=== PATIENT | female | born 1975 | race Caucasian/White ===

== ENCOUNTER 2022-10-30 15:48 | Outpatient (CLI) | payer OTHER, SELFPAY ==
--- NOTE | 2022-10-30 15:40 | CRLHL7_ITS ---
For Patients: As a result of the Century Cures Act, medical imaging exams and procedure reports are released immediately into your electronic medical record. You may view this report before your referring provider. If you have questions, please contact your health care provider. BILATERAL SCREENING MAMMOGRAM WITH COMPUTER-AIDED DETECTION TECHNIQUE: CC and MLO views were obtained. These mammographic images have been obtained using full-field digital technique. These mammographic images were interpreted with the benefit of computer-aided detection. COMPARISON FILM: Baseline. FINDINGS: There are scattered areas of fibroglandular density IMPRESSION: There is no radiographic evidence for malignancy. ASSESSMENT: BI-RADS Category 1: Negative RECOMMENDATION: Routine screening mammogram in 1 year. A lay language report of this examination will be provided to the patient. Shawn Chaudhari M.D. Diagnostic Radiologist [employer] [email or web address] ABIMBOLA/Dictated by: Shawn Chaudhari MD @ 10/31/2022 8:40:00 AM (Electronically Signed)
== END 2022-10-30 15:49 | disposition home or self-care (01) ==
LOC: MAMMO 15:49
PROVIDERS: PCP Internal Medicine; Visit Provider Internal Medicine
DX: Z12.31 Encounter for screening mammogram for malignant neoplasm of breast (principal)
CPT/HCPCS: 77063; 77067

== ENCOUNTER 2023-12-15 09:37 | Outpatient (CLI) | payer OTHER, SELFPAY ==
--- OUTSIDE RECORDS SUMMARY | 2023-12-17 09:46 | XMS_ITS | Clinical Summary ---
Author Organization [employer] [facility] Address [place], [place] [address] Care Team Providers Care Photographic Supervisor Name Role Phone Cinthia Baez Primary Care Provider [phone] Allergies Active Allergy Reactions Criticality Noted Date Comments Adhesive Rash 09/26/2015 Medications Medication Sig Dispensed Refills Start Date End Date Status OMEPRAZOLE 20 MG CAP, DELAYED RELEASE take 1 capsule (20 mg) by oral route once daily before a meal 0 02/09/2008 Active amLODIPine (NORVASC) 5 mg tablet Take 5 mg by mouth once daily. Active HYDROcodone-acetam inophen (NORCO) 5-325 mg per tabletIndications: Pain, dental Take 1 Tablet by mouth every 4 hours if needed for Pain. Max acetaminophen dose: 4000 mg in 24 hrs. 10 Tablet 10/18/2021 Active Active Problems No known active problems Immunizations Name Administration Dates Next Due Hepatitis B (Adult) 05/06/2001,02/11/2001,2000 Hepatitis B, Unspecified 05/06/2001,02/11/2001,0 12/24/2000 Influenza, IIV3 (Age 6-35 mos) 01/20/2014,2012,03/01/2012,12/20/2010 Influenza, IIV4 03/20/2021, 9,01/25/2018,12/29/2016,1 Influenza, IIV4 (=>6mos) MDV 01/29/2016 Td (Age >=7 Years) 07/12/2003 Tdap 10/16/2015,12/04/2013 Social History Tobacco Use Types Packs/Day Years Used Date Smoking Tobacco: Never Smokeless Tobacco: Never Alcohol Use Standard Drinks/Week Comments Yes 0 (1 standard drink = 0.6 oz pur e alcohol) ocass. Sex and Gender Information Value Date Recorded Sex Assigned at Not on file Gender Identity Not on file Sexual Orientation Not on file Obstetrics History Para Term AB IAB SAB Ectopic Multiple Livin g Live Births 6 4 1 1 Date Outcome GA Total Labor Labor/2nd/3rd Weight Sex Type Anes PTL Raquel A1 A5 Name Clin Para Para Para Para SAB Last Filed Vital Signs Vital Sign Reading Time Taken Comments Blood Pressure 162/78 01/18/2022 12:00 PM CDT Pulse 108 01/18/2022 12:00 PM CDT Temperature 36.9 ??C (98.4 ??F) 01/18/2022 1 2:00 PM CDT Respiratory Rate 18 01/18/2022 12:1 3 PM CDT Oxygen Saturation 98% 01/18/2022 12: 00 PM CDT Inhaled Oxygen Concentration - - Weight 94.3 kg (207 lb 14.4 oz) 022 12:00 PM CDT Height 165.1 cm (5' 5) 01/18/2022 12:0 0 PM CDT Body Mass Index 34.6 01/18/2022 12:00 PM CDT Plan of Treatment Health Maintenance Due Date Last Done Comments Depression screening for age 12+ 1989 HIV for age 15-65 02/05/1992 BMI (ht and wt on same day) for age 18+ 1995 Hepatitis C screening for age 18-79 1995 Pap test for age 21-65 06/10/2016 4, 06/10/2013, 05/30/2010 Colonoscopy through age 75 2022 Lipids for age 45-75 2022 Mammogram for age 45-75 2022 COVID-19 vaccine series ( season) 2023 Influenza for age 9-49 11/29/2023 , 01/12/2019, 01/25/2018, Additional history exists Tetanus booster 10/15/2025 10/16/2015, 09/2013, 07/12/2003 Tdap Completed 10/16/2015, 12/04/2013 Pneumococcal series for age 6-64 Aged Out No longer eligible based on patient's age to complete this topic Procedures Procedure Name Priority Date/Time Associated Diagnosis Comments HPV HIGH RISK Timed 06/10/2013 1:31 PM CDT from Last 3 Months or Most Recently Relevant to Health Maintenance Results * HPV THIN PREP (06/10/2013 1:31 PM CDT) SPECIMEN/SOURC E Thin prep [facility] HPV RESULTS High Risk HPV Negative. HPV types 16,18,31, 33,35,39, 45,51,52, 56,58,59, 66 and 68 DNA were undetecta ble or below the pre-set threshold . Methodolo gy: Chris Abbey [address] [facility] 06/10/2013 1:31 PM CDT 06/13/2013 1:31 PM CDT Ngoc Hope MD MICROBIOLOGY [facility] INTERNAL ZIP [id number] [place] [phone] from Last 3 Months or Most Recently Relevant to Health Maintenance Advance Directives * Full Code (Latest Code Status on File) Date Activated Date Inactivated Comments 09/26/2015 9:48 PM 09/27/2015 12:43 AM Care Teams Photographic Supervisor Relationship Specialty Start Date End Date Cinthia Baez [address] [place] [phone] PCP - General 12/11/19
== END 2023-12-15 09:38 | disposition home or self-care (01) ==
LOC: NFLDREF 12-17 09:43
PROVIDERS: PCP Internal Medicine; Referring Provider Internal Medicine; Visit Provider Internal Medicine
DX: I10 Essential (primary) hypertension (principal); Z13.6 Encounter for screening for cardiovascular disorders
CPT/HCPCS: 80053; 80061

== ENCOUNTER 2024-02-18 14:30 | Outpatient (CLI) | payer OTHER, SELFPAY ==
--- OUTSIDE RECORDS SUMMARY | 2024-02-18 14:32 | XMS_ITS | Clinical Summary ---
Author Organization [employer] [facility] Address [place], [place] [address] Care Team Providers Care Daycare Teacher Name Role Phone Cinthia Baez Primary Care Provider [phone] Allergies Active Allergy Reactions Criticality Noted Date [...] 108 01/18/2022 12:00 PM CDT Temperature 36.9 C (98.4 F) 01/18/2022 12:00 PM CDT Respiratory Rate 18 01/18/2022 12:1 [...] for age 45-75 2022 COVID-19 vaccine series (2023- season) 2023 Influenza for age 9-49 11/29/2023 [...] 1:31 PM CDT) SPECIMEN/SOURC E Thin prep [facility] HPV RESULTS High Risk HPV Negative. HPV types 16,18,31, 33,35,39, 45,51,52, 56,58,59, 66 and 68 DNA were undetecta ble or below the pre-set threshold . Methodolo gy: Chris Abbey 4800 HPV Test [facility] 06/10/2013 1:31 PM CDT 06/13/2013 1:31 PM CDT Ngoc Hope MD MICROBIOLOGY [facility] INTERNAL ZIP [phone] [place] [phone] from Last 3 Months or Most Recently Relevant to Health Maintenance Advance Directives * Full Code (Latest Code Status on File) Date Activated Date Inactivated Comments 09/26/2015 9:48 PM 09/27/2015 12:43 AM Care Teams Daycare Teacher Relationship Specialty Start Date End Date Cinthia Baez [address] [place] [id number] PCP - General 12/11/19
--- NOTE | 2024-02-18 14:40 | CRLHL7_ITS ---
For Patients: As a result of the Century Cures Act, medical imaging exams and procedure reports are released immediately into your electronic medical record. You may view this report before your referring provider. If you have questions, please contact your health care provider. BILATERAL DIGITAL SCREENING MAMMOGRAM WITH COMPUTER-AIDED DETECTION AND TOMOSYNTHESIS CLINICAL HISTORY: Routine screening exam. COMPARISON: 10/30/2022. TECHNIQUE: Digital mammogram in CC and MLO projections including computer-aided detection (CAD). Tomosynthesis was used in this interpretation. BREAST COMPOSITION: There are scattered areas of fibroglandular density. FINDINGS: RIGHT Breast: Focal asymmetric density within the upper inner quadrant 6 cm from the nipple. LEFT Breast: No suspicious findings. IMPRESSION: RIGHT breast asymmetry/mass. RECOMMENDATIONS: Additional mammographic views of the RIGHT breast including 3D spot compression CC/MLO. RIGHT breast ultrasound may also be required. [facility] will contact the patient. A lay language report of this examination will be provided to the patient. BI-RADS Category 0: Incomplete: Need Additional Imaging Evaluation Dictated by Shawn Chaudhari MD @ 02/19/2024 10:11:14 AM jj/Dictated by: Shawn Chaudhari MD @ 02/19/2024 10:11:00 AM (Electronically Signed)
== END 2024-02-18 14:31 | disposition home or self-care (01) ==
LOC: MAMMO 14:31
PROVIDERS: PCP Internal Medicine; Visit Provider Internal Medicine
DX: Z12.31 Encounter for screening mammogram for malignant neoplasm of breast (principal); N63.10 Unspecified lump in the right breast, unspecified quadrant
CPT/HCPCS: 77063; 77067

== ENCOUNTER 2024-02-26 10:26 | Outpatient (CLI) | payer OTHER, SELFPAY ==
--- OUTSIDE RECORDS SUMMARY | 2024-02-26 10:28 | XMS_ITS | Clinical Summary ---
Author Organization [employer] [facility] Address [place], [place] [address] Care Team Providers Care Ux Interaction Designer Name Role Phone Cinthia Baez Primary Care Provider [phone] Allergies Active Allergy Reactions Criticality Noted Date [...] 1:31 PM CDT) SPECIMEN/SOURC E Thin prep [facility] HPV RESULTS High Risk HPV Negative. HPV types 16,18,31, 33,35,39, 45,51,52, 56,58,59, 66 and 68 DNA were undetecta ble or below the pre-set threshold . Methodolo gy: Chris Abbey 4800 HPV Test [facility] 06/10/2013 1:31 PM CDT 06/13/2013 1:31 PM CDT Ngoc Hope MD MICROBIOLOGY [facility] INTERNAL ZIP [phone] [place] [phone] from Last 3 Months or Most Recently Relevant to Health Maintenance Advance Directives * Full Code (Latest Code Status on File) Date Activated Date Inactivated Comments 09/26/2015 9:48 PM 09/27/2015 12:43 AM Care Teams Ux Interaction Designer Relationship Specialty Start Date End Date Cinthia Baez [address] [place] [id number] PCP - General 12/11/19
--- NOTE | 2024-02-26 10:45 | CRLHL7_ITS ---
For Patients: As a result of the Cures Act, medical imaging exams and procedure reports are released immediately into your electronic medical record. You may view this report before your referring provider. If you have questions, please contact your health care provider. DIGITAL DIAGNOSTIC RIGHT MAMMOGRAM PERFOMED USING TOMOSYNTHESIS AND COMPUTER-AIDED DETECTION RIGHT BREAST ULTRASOUND CLINICAL HISTORY: RIGHT breast mass/asymmetry. COMPARISON: 02/18/2024, 10/30/2022. TECHNIQUE: Digital RIGHT mammogram in two projections. Tomosynthesis and CAD were used in this interpretation. Real-time ultrasound imaging of RIGHT breast with imaging documentation. BREAST COMPOSITION: There are scattered areas of fibroglandular density. FINDINGS: 3D spot compression CC/MLO RIGHT breast mammogram images submitted. Persistent suspicious mass with architectural distortion within the upper inner quadrant. No suspicious calcifications. Targeted RIGHT breast ultrasound performed. At 1 o`clock 8 cm from the nipple, there is a heterogeneous hypoechoic mass which is nearly taller than wide with distal acoustic shadowing measuring 14 x 14 x 14 millimeters. IMPRESSION: Suspicious mass RIGHT breast 1 o`clock 8 cm from the nipple measuring 1.4 cm. RECOMMENDATIONS: Ultrasound-guided core needle biopsy. A lay language report of this examination will be provided to the patient. BI-RADS Category 4: Suspicious Dictated by Shawn Chaudhari MD @ 02/26/2024 11:45:46 AM jj/Dictated by: Shawn Chaudhari MD @ 02/26/2024 11:45:00 AM (Electronically Signed)
--- NOTE | 2024-02-26 11:15 | CRLHL7_ITS ---
For Patients: As a result of the Cures Act, medical imaging exams and procedure reports are released immediately into your electronic medical record. You may view this report before your referring provider. If you have questions, please contact your health care provider. PLEASE SEE DIGITAL DIAGNOSTIC RIGHT MAMMOGRAM PERFORMED SAME DAY CRL:luis smith/Dictated by: Shawn Chaudhari MD @ 02/26/2024 11:45:00 AM (Electronically Signed)
== END 2024-02-26 10:27 | disposition home or self-care (01) ==
LOC: MAMMO 10:27
PROVIDERS: PCP Internal Medicine; Visit Provider Internal Medicine
DX: N63.10 Unspecified lump in the right breast, unspecified quadrant (principal); R92.8 Other abnormal and inconclusive findings on diagnostic imaging of breast
CPT/HCPCS: 76642; 77065; G0279

== ENCOUNTER 2024-03-07 08:52 | Outpatient (CLI) | payer OTHER, SELFPAY ==
--- OUTSIDE RECORDS SUMMARY | 2024-03-07 08:55 | XMS_ITS | Clinical Summary ---
Author Organization [employer] [facility] Address [place], [place] [address] Care Team Providers Care Electrical Wirer Name Role Phone Cinthia Baez Primary Care Provider Allergies Active Allergy Reactions Criticality Noted Date Comments Adhesive Rash 09/26/2015 Medications OMEPRAZOLE 20 MG CAP, DELAYED RELEASE take 1 capsule (20 mg) by oral route once daily before a meal 0 8 Active amLODIPine (NORVASC) 5 mg tablet Take 5 mg by mouth once daily. Active HYDROcodone-ac etaminophen (NORCO) 5-325 mg per tabletIndicati ons:Pain, dental Take 1 Tablet by mouth every 4 hours if needed for Pain. Max acetaminophen dose: 4000 mg in 24 hrs. 10 Tablet 2 Active Active Problems No known active problems [...] = 0.6 oz pur e alcohol) ocass. Comments No Sex and Gender Information Value Date Recorded Sex Assigned at Not on file Legal Sex Female 7:14 AM DECORATING KILN OPERATOR Gender Identity Not on file Sexual Orientation [...] 1:31 PM CDT) SPECIMEN/SOURC E Thin prep [facility] HPV RESULTS High Risk HPV Negative. HPV types 16,18,31, 33,35,39, 45,51,52, 56,58,59, 66 and 68 DNA were undetecta ble or below the pre-set threshold . Methodolo gy: Chris Abbey 4800 HPV Test [facility] 06/10/2013 1:31 PM CDT 06/13/2013 1:31 PM CDT us Ngoc Hope MD MICROBIOLOGY Final Result [facility] INTERNAL ZIP [address] [address] [place] [id number] from Last 3 Months or Most Recently Relevant to Health Maintenance Insurance [facility] Advance Directives * Full Code (Latest Code Status on File) Date Activated Date Inactivated Comments 09/26/2015 9:48 PM 09/27/2015 12:43 AM Care Teams Electrical Wirer Relationship Specialty Start Date End Date Cinthia Baez: [phone] [address] [place] [id number] PCP - General 12/11/19
--- NOTE | 2024-03-07 09:15 | CRLHL7_ITS ---
For Patients: As a result of the Century Cures Act, medical imaging exams and procedure reports are released immediately into your electronic medical record. You may view this report before your referring provider. If you have questions, please contact your health care provider. ULTRASOUND-GUIDED BREAST BIOPSY AND POST-BIOPSY DIGITAL MAMMOGRAM FOR BIOPSY MARKER PLACEMENT CLINICAL HISTORY: Indeterminate mass. COMPARISON STUDIES: 02/26/2024. TECHNIQUE: Real-time ultrasound with image documentation was used for targeting the breast lesion. Core biopsy specimens were obtained using an automated gun with an 18-gauge biopsy needle. Post-biopsy CC and ML digital mammograms were obtained to document position of the biopsy marker. CONSENT and TIME OUT: The procedure, risks, and alternatives were explained to the patient and a consent was signed. [place] Protocol was followed including pre-procedure verification that relevant information/documentation was available, reviewed and properly matched to the patient; consent accurate and complete; and equipment and supplies available. Time Out was conducted just prior to starting procedure to verify the four required elements: patient identity, correct side/site marked (if applicable), procedure, relevant images/results properly labeled and displayed (if applicable). PROCEDURE: The patient was positioned supine on the ultrasound table. The breast was prepped with ChloraPrep. 8 cc 1 percent lidocaine used for local anesthesia. Core samples were obtained. A sterile metal biopsy clip was placed percutaneously to marcelo the lesion position within the breast. The specimens were placed in 10% formalin and sent to the pathology department. Pressure was held on the biopsy site until all bleeding subsided. The skin incision was closed with Steri-Strips. An ice pack was positioned over the biopsy site. Post-biopsy instructions were reviewed with the patient, and a written copy was given to her. LATERALITY: RIGHT breast. LESION: Ill-defined hypoechoic shadowing mass measuring 1.4 x 1.4 x 1.4 cm at 1 o`clock 8 cm from the nipple. SUSPICION FOR MALIGNANCY: High. NUMBER OF SAMPLES: 6. BIOPSY CLIP SHAPE: Oval. PROXIMITY OF CLIP TO TARGET: Within the lesion. IMPRESSION: Ultrasound-guided breast biopsy. When the pathology report is available, an addendum to this report will be made. ACR not applicable Dictated by Shawn Chaudhari MD @ 03/07/2024 12:22:41 PM jj/Dictated by: Shawn Chaudhari MD @ 03/07/2024 12:22:00 PM (Electronically Signed)
--- NOTE | 2024-03-07 10:00 | CRLHL7_ITS ---
For Patients: As a result of the Century Cures Act, medical imaging exams and procedure reports are released immediately into your electronic medical record. You may view this report before your referring provider. If you have questions, please contact your health care provider. PLEASE SEE ULTRASOUND-GUIDED RIGHT BREAST BIOPSY PERFORMED SAME DAY CRL:luis smith/Dictated by: Shawn Chaudhari MD @ 03/07/2024 12:22:00 PM (Electronically Signed)
--- NOTE | 2024-04-05 13:51 | ONC.NURNOTE ---
Pt called noting surgery is 04/11/24.
== END 2024-03-07 08:53 | disposition home or self-care (01) ==
LOC: US 08:53
PROVIDERS: PCP Internal Medicine; Visit Provider Internal Medicine
DX: N63.10 Unspecified lump in the right breast, unspecified quadrant (principal); C50.911 Malignant neoplasm of unspecified site of right female breast; R92.8 Other abnormal and inconclusive findings on diagnostic imaging of breast
CPT/HCPCS: 19083; 77065; 88305; 88360; 88361; A4648; A4649

== ENCOUNTER 2024-10-13 09:10 | Outpatient (RCR) | payer OTHER, SELFPAY ==
--- NOTE | 2024-06-20 14:49 | ONC.NURNOTE ---
Call to patient to see how she is tolerating the Tamoxifen. Patient states she is doing pretty good. Only notes intermittent leg aches but denies need for intervention. Will continue as planned and follow up in September. Patient encouraged to call with questions or concerns.
== END 2024-11-26 23:59 | disposition home or self-care (01) ==
LOC: CCIC 09:10
PROVIDERS: PCP Internal Medicine; Visit Provider Physician Assistant
DX: C50.911 Malignant neoplasm of unspecified site of right female breast (principal); Z17.0 Estrogen receptor positive status [ER+]; Z90.13 Acquired absence of bilateral breasts and nipples; Z79.810 Long term (current) use of selective estrogen receptor modulators (SERMs); Z80.3 Family history of malignant neoplasm of breast; I97.2 Postmastectomy lymphedema syndrome
CPT/HCPCS: 99202; 99205; 99213; G0463

== ENCOUNTER 2025-02-08 10:15 | Outpatient (CLI) | payer OTHER, SELFPAY | END 2025-02-08 10:16 | disposition home or self-care (01) | LOC: NFLDREF 02-23 13:55 | PROVIDERS: PCP Internal Medicine; Referring Provider Internal Medicine; Visit Provider Internal Medicine | DX: Z00.00 Encounter for general adult medical examination without abnormal findings (principal); I10 Essential (primary) hypertension | CPT/HCPCS: 80053; 80061 ==